=== PATIENT | male | born 1950 | race Hispanic/Latino ===

== ENCOUNTER → 2019-12-03 | Outpatient (CLI) | payer MEDICARE, OTHER ==
--- NOTE | 2019-12-03 10:22 | Diagnostic Imaging Report ---
EXAMINATION: HAND THREE VIEWS BILATERAL INDICATION: Hand pain COMPARISON: None FINDINGS: No acute fracture or dislocation. Alignment is anatomic. Mild scattered degenerative changes. The soft tissues appear unremarkable. IMPRESSION: No acute osseous injury. Mild scattered degenerative changes. Signed by: Yasmeen Copeland MD on 12/03/2019 10:18 AM
== END ==
LOC: RAD 09:13
PROVIDERS: ATTEND Family Medicine
DX: M79.642 Pain in left hand (principal); M79.641 Pain in right hand